=== PATIENT | male | born 1960 | race Caucasian/White ===

== ENCOUNTER → 2021-03-07 04:06 | Outpatient (CLI) | payer BC, SELFPAY ==
[2021-03-07 19:57] LABS: SARS-CoV-2 RNA PCR Negative
== END ==
PROVIDERS: PCP Internal Medicine; Visit Provider Internal Medicine Gastroenterology
DX: Z01.812 Encounter for preprocedural laboratory examination (principal); Z20.822 Contact with and (suspected) exposure to COVID-19
CPT/HCPCS: C9803; U0003; U0005

== ENCOUNTER 2021-03-10 02:01 | Day surgery (SDC) | payer BC, SELFPAY ==
[2021-02-24 13:58] VITALS: BMI 32.2
--- NOTE | 2021-03-09 11:28 | WPDANESEPPF ---
Anes - Initial Pre Proc Eval Procedure: Operation Date: 03/10/21 10:15 Proposed Procedures p Colonoscopy - Bimal Parra MD Date/Time: 03/09/21 11:28 Surgeon: Bimal Parra MD Pre Op Diagnosis: Neoplasm screening and fam hx Patient Data Age: 60 Gender: M Height: 1.78 m Weight: 102 kg Allergies Allergy/AdvReac Type Severity Reaction Status Date / Time latex Allergy Unknown Itching Verified 03/10/21 08:59 Cat Dander Allergy Anaphylaxis Uncoded 03/10/21 08:59 Home Medications Medication Instructions Recorded Confirmed Type sod picosulf 10 mg-magnes 3.5 160 ml PO BID #160 ml 02/17/21 03/10/21 Rx gram-citric 12 gram/160 mL oral solution atorvastatin 40 mg PO DAILY 02/24/21 02/24/21 History pantoprazole 10 mg PO QAM 02/24/21 02/24/21 History Patient hx anesthesia problems: none Family hx anesthesia problems: none PMFSH Past Medical History Medical History (Updated 03/09/21 @ 11:29 by Casa Rodriguez DO) Hyperlipidemia MARYSE (obstructive sleep apnea) Family History Family History (Updated 07/09/14 @ 07:13 by DOCTOR UNKNOWN) Mother Family history of mental disorder Sibling Family history of mental disorder Asthma Father Carcinoma of colon Social History Social History Smoking packs per day: 1 Smoking cigarettes per day: 20.0 Smoking status: Former smoker Tobacco type: cigarettes Alcohol intake: current Alcohol use details: RARELY Substance use: current Substance use type: marijuana Living arrangements: with family Gender identity (if verbalized by the patient): Male Spiritual care concerns: No Anes - Eval Final PreProcedure Day of Procedure 03/09/21 11:28 Patient weight: obese Heart: regular rate and rhythm Lungs: clear to auscultation and normal air movement Airway: Mallampati scale class III Neurological: alert and oriented Last oral intake: >/= 8 hours ASA classification: III Emergent: no Anesthetic plan: proceed Anesthesia type and monitoring: general GIVS and standard monitoring Informed Consent: The patient's anesthetic plan and its attendant risks and benefits were discussed with the patient/family/POA. Questions were solicited and answers provided to the satisfaction of the patient/family/POA.
[2021-03-10 09:01] VITALS: BP 135/80; PULSE 58; RESP 16; TEMP 37.1; O2SAT 97; BMI 34.1
[2021-03-10] MEDS: LACTATED RINGERS 1,000 ML 150 ML IV CONT ×2 (09:10→10:22)
--- NOTE | 2021-03-10 10:11 | PM.HPGS ---
History of Present Illness History of Present Illness Consent: Risks, benefits, and alternatives have been discussed and questions answered. Patient agrees to proceed with procedure. Chief complaint: Neoplasm screening and fam hx Narrative: Anthony Encarnacion is a 60 year old male referred for colon cancer screening. His father had colon cancer Review of Systems Review of Systems: All systems reviewed & are unremarkable except as noted in HPI and below PMFSH Past Medical History Medical History Hyperlipidemia MARYSE (obstructive sleep apnea) Family History Family History Mother Family history of mental disorder Sibling Family history of mental disorder Asthma Father Carcinoma of colon Social History Social History Smoking packs per day: 1 Smoking cigarettes per day: 20.0 Smoking status: Former smoker Tobacco type: cigarettes Alcohol intake: current Alcohol use details: RARELY Substance use: current Substance use type: marijuana Living arrangements: with family Gender identity (if verbalized by the patient): Male Spiritual care concerns: No Meds Home Medications and Allergies Home Medications Medication Instructions Recorded Confirmed Type sod picosulf 10 mg-magnes 3.5 160 ml PO BID #160 ml 02/17/21 03/10/21 Rx gram-citric 12 gram/160 mL oral solution atorvastatin 40 mg PO DAILY 02/24/21 02/24/21 History pantoprazole 10 mg PO QAM 02/24/21 02/24/21 History Allergies Allergy/AdvReac Type Severity Reaction Status Date / Time latex Allergy Unknown Itching Verified 03/10/21 08:59 Cat Dander Allergy Anaphylaxis Uncoded 03/10/21 08:59 Vital Signs Vital Signs - 24 hr 03/10/21 09:01 Temperature 37.1 C Pulse Rate 58 L Respiratory Rate 16 Blood Pressure 135/80 Pulse Oximetry 97 Exam Resp: Auscultation: clear to auscultation bilaterally Cardio: Rate: regular rate Rhythm: regular rhythm GI: GI Palp: Yes Soft to palpation and No Tenderness to palpation present (GI) Assessment and Plan Assessment and plan (1) Colon cancer screening: Code(s): Z12.11 - Encounter for screening for malignant neoplasm of colon Status: Acute Assessment and Plan: Colonoscopy with possible biopsy or polypectomy or cautery or injection of substances.
[2021-03-10] MEDS: SIMETHICONE ORAL SUSPENSION 20 MG/0.3 ML 30 ML BOTTLE 0.6 ML IRRIGATION (10:29)
[2021-03-10 10:36] VITALS: BP 117/74; PULSE 59; RESP 17; O2SAT 97
[2021-03-10 10:46] VITALS: BP 124/76; PULSE 56; RESP 17; O2SAT 97
[2021-03-10 10:56] VITALS: BP 120/89; PULSE 54; RESP 17; O2SAT 99
== END 2021-03-10 10:58 | disposition home or self-care (01) ==
PROVIDERS: PCP Family Medicine Sports Medicine; Visit Provider Internal Medicine Gastroenterology
PROC: 0DJD8ZZ Inspection of Lower Intestinal Tract, Via Natural or Artificial Opening Endoscopic (ICD-10-PCS; CPT 45378; principal; 2021-03-10 10:15)
DX: Z12.11 Encounter for screening for malignant neoplasm of colon (principal); K57.30 Diverticulosis of large intestine without perforation or abscess without bleeding; E78.5 Hyperlipidemia, unspecified; G47.33 Obstructive sleep apnea (adult) (pediatric); Z87.891 Personal history of nicotine dependence; F12.90 Cannabis use, unspecified, uncomplicated; E66.9 Obesity, unspecified; Z68.34 Body mass index [BMI] 34.0-34.9, adult; Z80.0 Family history of malignant neoplasm of digestive organs
CPT/HCPCS: 45378; C9803; J2704; J7120; U0003; U0005

== ENCOUNTER → 2021-08-30 08:58 | Outpatient (CLI) | payer BC, SELFPAY ==
[2021-08-31 19:26] LABS: SARS-CoV-2 RNA PCR Negative
== END ==
PROVIDERS: PCP Family Medicine; Visit Provider Family Medicine
DX: Z20.822 Contact with and (suspected) exposure to COVID-19 (principal); R05.9 Cough, unspecified
CPT/HCPCS: C9803; U0003; U0005

== ENCOUNTER 2021-11-02 12:14 | Emergency (ER) | payer BC, SELFPAY ==
--- NOTE | 2021-11-02 12:15 | ED.WOUNDLAC ---
HPI - Wound/Laceration General Chief Complaint: Wound/Laceration Stated Complaint: FINGER LACERATION Time Seen by Provider: 11/02/21 12:15 Source: patient and RN notes reviewed History of Present Illness HPI narrative: Patient is 61-year-old male who presents the urgent care with complaints of a finger laceration that occurred approximately 20 minutes prior to arrival. Patient states he was using a wood last maker and it slipped, cutting his left thumb. Patient was not wearing gloves. Patient has applied pressure and butterfly bandages prior to arrival. No other acute complaints. No acute distress noted. Patient aware of the plan of care. Some parts of this dictation were generated by voice recognition software and may contain typographical and/or grammatical inaccuracies. Related Data Home Medications Medication Instructions Recorded Confirmed atorvastatin 40 mg PO DAILY 02/24/21 11/02/21 pantoprazole 10 mg PO QAM 02/24/21 11/02/21 Allergies Allergy/AdvReac Type Severity Reaction Status Date / Time latex Allergy Unknown Itching Verified 11/02/21 12:31 Cat Dander Allergy Anaphylaxis Uncoded 11/02/21 12:31 Review of Systems Review of Systems: CONSTITUTIONAL: Denies fever, chills, or sweats. EYES: Denies visual changes, redness, or discharge. ENT: Denies rhinorrhea, congestion, sore throat, or otalgia. CARDIOVASCULAR: Denies chest pain, palpitations, or edema. RESPIRATORY: Denies cough or dyspnea. GASTROINTESTINAL: Denies abdominal pain, nausea, vomiting, or diarrhea. GENITOURINARY: Denies dysuria or hematuria. SKIN: Reports of a laceration to the left thumb MUSCULOSKELETAL: Denies back pain, joint pain, or myalgia. NEUROLOGIC: Denies headache, numbness, or weakness. All other systems reviewed are negative, except as documented in HPI. [facility], LAT[facility] Past Medical History Medical History Hyperlipidemia MARYSE (obstructive sleep apnea) Family History Family History Mother Family history of mental disorder Sibling Family history of mental disorder Asthma Father Carcinoma of colon Social History Social History Smoking packs per day: 1 Smoking cigarettes per day: 20.0 Smoking status: Former smoker Tobacco type: cigarettes Alcohol intake: current Alcohol use details: RARELY Substance use: current Substance use type: marijuana Gender identity (if verbalized by the patient): Male Spiritual care concerns: No Comments At the time of my signature, I reviewed and agree with the nursing past medical, surgical, social, and family history. There is no relevant family history pertinent to the patient complaint. Exam Narrative: GENERAL: This is a well-nourished, well-developed patient, in no apparent distress. HEAD: normocephalic, atraumatic. EYES: PERRL. Sclera clear/white. Vision is grossly intact. EARS: External ears normal NOSE: External nose normal with no obvious nasal discharge, nares without redness, no rhinorrhea. THROAT: Mucous membranes moist NECK: Neck supple CARDIOVASCULAR: Regular rate and rhythm without murmurs, gallops, or rubs. RESPIRATORY: Clear to auscultation. Breath sounds equal bilaterally. No wheezes, rales, or rhonchi. SKIN: 2 cm jagged open laceration to the dorsal aspect of the left thumb over the PIP NEURO: awake, alert, and oriented to person, place and time. There were no obvious focal neurologic abnormalities. EXTREMITIES: No clubbing, cyanosis, or edema. Capillary refill the left upper extremity within normal limits. Range of motion to left thumb within normal limits. Positive strong left radial pulse Course Vital Signs Vital signs: Vital Signs Temperature 97.3 F L 11/02/21 12:28 Pulse Rate 46 L 11/02/21 12:28 Respiratory Rate 16 11/02/21 12:28 Blood Pressure 119/48 L 11/02/21 12:28 Pulse Oximetry 10
[2021-11-02 12:28] VITALS: BP 119/48; PULSE 46; RESP 16; TEMP 36.3; O2SAT 100
[2021-11-02] MEDS: TETANUS,DIPHTHERIA,AC PERTUSSIS ADULT (0.5 ML) BOOSTRIX IM (13:06)
== END 2021-11-02 13:20 | disposition home or self-care (01) ==
PROVIDERS: Emergency Provider Nurse Practitioner Family; PCP Family Medicine
DX: S61.012A Laceration without foreign body of left thumb without damage to nail, initial encounter (principal); W29.8XXA Contact with other powered hand tools and household machinery, initial encounter; Z23 Encounter for immunization; Z87.891 Personal history of nicotine dependence; E78.5 Hyperlipidemia, unspecified; G47.33 Obstructive sleep apnea (adult) (pediatric)
CPT/HCPCS: 12001; 90471; 90715; 99213; G0463

== ENCOUNTER → 2021-11-22 07:21 | Outpatient (CLI) | payer BC, SELFPAY ==
[2021-11-22 21:03] LABS: SARS-CoV-2 RNA PCR Negative
== END ==
PROVIDERS: PCP Family Medicine; Visit Provider Family Medicine
DX: Z20.822 Contact with and (suspected) exposure to COVID-19 (principal)
CPT/HCPCS: C9803; U0003; U0005

== ENCOUNTER → 2023-08-13 09:01 | Outpatient (CLI) | payer BC, SELFPAY ==
--- NOTE | ~2023-08-13 | MR_ITS ---
EXAMINATION: MR shoulder RT wo con DATE: 08/13/2023 09:52 INDICATION: Traumatic complete tear of the right rotator cuff with chronic right shoulder pain TECHNIQUE: Magnetic resonance imaging (MRI) of the right shoulder was performed without intravenous c ontrast. Sequences included axial PD-weighted FS FSE, coronal oblique PD-weighted FS FSE, coronal obl ique T2-weighted FS FSE, sagittal PD-weighted FS FSE, and sagittal T1-weighted SE. COMPARISON: None. FINDINGS: Coracoacromial arch: The acromion undersurface is minimally curved in morphology (type I-II). The coracoacromial ligament is normal. Mild acromioclavicular osteoarthritis. Rotator cuff: Moderate supraspinatus and mild infraspinatus tendinopathy without tear. Mild subscapularis tendinopa thy without tear. The teres minor tendon is normal. Normal rotator cuff muscle bulk and signal. Biceps tendon, glenoid labrum and glenohumeral cartilage: Long head of the biceps tendon is normal. Amorphous increased signal consistent with degenerative tea ring of the posterosuperior and anteroinferior glenoid labrum. Glenohumeral cartilage is normal. Fluid: Physiologic amount of fluid in the glenohumeral joint and biceps tendon sheath. No loose osteochondr al bodies. Small amount of fluid in the subacromial/subdeltoid bursa consistent with mild bursitis. Bones: Normal marrow signal. No fracture or pathologic marrow replacing process. IMPRESSION: 1. Moderate supraspinatus and mild infraspinatus and subscapularis tendinopathy without discrete tear . 2. Degeneration of the posterosuperior and anteroinferior glenoid labrum. 3. Mild acromioclavicular osteoarthritis. 4. Mild subacromial/subdeltoid bursitis. Reviewed, dictated and finalized at location [facility]. IMPRESSION: 1. Moderate supraspinatus and mild infraspinatus and subscapularis tendinopathy without discrete tear. 2. Degeneration of the posterosuperior and anteroinferior glenoid labrum. 3. Mild acromioclavicular osteoarthritis. 4. Mild subacromial/subdeltoid bursitis.
== END ==
PROVIDERS: PCP Family Medicine; Visit Provider Physician Assistant
DX: S46.011A Strain of muscle(s) and tendon(s) of the rotator cuff of right shoulder, initial encounter (principal); M19.011 Primary osteoarthritis, right shoulder; M75.51 Bursitis of right shoulder; M67.813 Other specified disorders of tendon, right shoulder
CPT/HCPCS: 73221

== ENCOUNTER 2025-05-26 10:25 | Outpatient (CLI) | payer BC, SELFPAY ==
--- NOTE | ~2025-05-26 | MR_ITS ---
MRI of the cervical spine Clinical History: Left upper portion neuropathy Technique: Axial T2-weighted and gradient images, and sagittal T1-weighted, T2-weighted, and STIR rom ges were acquired. Findings: No acute fracture or subluxation identified. Vertebral bodies maintain normal height and al ignment. No suspicious bone marrow signal abnormality seen. At C2-C3, there is no significant disc bulge or herniation. No spinal canal stenosis, cord compressio n, or neural foraminal narrowing. At C3-C4, there is moderate degenerative distended. There is disc osteophyte complex with minimal can al stenosis without araceli cord compression. There is severe left neural foraminal narrowing and moder ate to severe right neural foraminal narrowing. At C4-C5, there is disc osteophyte complex with mild canal stenosis but no araceli cord compression. Th ere is bilateral moderate to advanced neural foraminal narrowing. At C5-C6, there is mild disc osteophyte complex. There is minimal canal stenosis without araceli cord c ompression. There is probable bilateral neural foraminal narrowing, left worse than right. At C6-C7, there is minimal disc osteophyte convex. No canal stenosis or cord compression. There is bi lateral neural foraminal narrowing. No abnormal signal seen in the spinal cord. Paravertebral soft tissues are unremarkable. Impression: Moderate degenerative spondylosis throughout the cervical spine, as detailed above. Reviewed, dictated and finalized at [facility]. Impression: Moderate degenerative spondylosis throughout the cervical spine, as detailed ab lailae.
== END 2025-05-26 10:26 | disposition home or self-care (01) ==
LOC: GOSHIMG 10:26
PROVIDERS: PCP Family Medicine; Visit Provider Family Medicine
DX: M47.812 Spondylosis without myelopathy or radiculopathy, cervical region (principal); G56.92 Unspecified mononeuropathy of left upper limb
CPT/HCPCS: 72141